=== PATIENT | male | born 1955 | race Caucasian/White ===

== ENCOUNTER → 2016-08-28 | Outpatient (CLI) | payer BC, OTHER ==
--- NOTE | 2016-08-28 12:18 | DIAGNOSTIC IMAGING REPORT ---
LUMBAR SPINE 5 VIEWS HISTORY: Back pain LBP COMPARISON: None. FINDINGS: There is no fracture. No subluxation. Moderate degenerative disc changes throughout. IMPRESSION: Moderate degenerative disc change. No acute bony abnormality. Electronically signed by: Dar Bernardo M.D. 08/28/2016 12:15 PM Dictated Date/Time: 08/28/2016 12:15 PM
== END | disposition home or self-care (01) ==
LOC: C.RDSM 07:39
PROVIDERS: ATTEND Family Medicine
DX: M54.5 Low back pain (principal)